=== PATIENT | female | born 2000 | race African-American/Black ===

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

== ENCOUNTER 2019-02-22 13:51 | Outpatient (CLI) | payer MEDICAID ==
[~2019-02-22] VITALS: Ht 175.3 cm; Wt 100.0 kg
[~2019-02-22 13:51] MED LIST changes: +ZOFRAN 4MG T4 MG/TAB PO; +ZOLOFT 50MG50 MG PO
--- NOTE | 2019-02-22 14:00 | NUR ---
Pt arrives on unit ambulatory with mother. States increased pressure that began this morning and increased throughout the day. Pt reports "slime" discharge feeling. Denies recent intercourse and bloody show. Report good movement. Changed into clean gown. EFM and toco applied. VSS. Amniotest negative. SVE per this RN /-2 with yellow/scant discharge. Reactive FHR strip. Admission assessment completed. Pt updated on POC. Safety reviewed. Bed locked in low position. Call light within reach. No questions or concerns at this time.
[2019-02-22 15:00] VITALS: BP 116/59; PULSE 111; TEMP 98.7
--- NOTE | 2019-02-22 15:06 | NUR ---
SVE per this RN unchanged. Pt taken off monitors. Discharge instructions given. No questions or concerns at this time.
== END 2019-02-22 15:00 | disposition home or self-care (01) ==
LOC: LDRO 13:51 → LDR 14:21 → LDRO 15:00
DX: Z34.93 Encounter for supervision of normal pregnancy, unspecified, third trimester (principal); Z3A.34 34 weeks gestation of pregnancy
CPT/HCPCS: OP

== ENCOUNTER 2019-02-22 20:28 | Outpatient (CLI) | payer MEDICAID ==
[~2019-02-22] VITALS: Ht 175.3 cm; Wt 100.0 kg
[2019-02-22 20:45] VITALS: BP 120/63; PULSE 96; TEMP 98.5
[2019-02-22 21:15] VITALS: BP 117/67; PULSE 100
[2019-02-22 21:45] VITALS: BP 110/58; PULSE 98
--- NOTE | 2019-02-22 22:39 | NUR ---
2200 PT DONE WITH RT TREATMENT AND FEELING BETTER. SVE DONE WITH NO CHANGE NOTED. EFM REMOVED AND PT DRESSING. REVIEWED DISCHARGE INSTRUCTIONS WITH PT AND HER MOTHER.
== END 2019-02-22 22:25 | disposition home or self-care (01) ==
LOC: LDRO 20:28
DX: O62.9 Abnormality of forces of labor, unspecified (principal); Z3A.34 34 weeks gestation of pregnancy

== ENCOUNTER 2019-02-25 19:40 | Outpatient (CLI) | payer MEDICAID ==
[~2019-02-25] VITALS: Ht 172.7 cm; Wt 100.9 kg
--- NOTE | 2019-02-25 19:45 | NUR ---
G1 at 35 weeks and 1 day presents to hospital with complaint of contractions every 3-4 minutes. Pt states she also has a headached. Pt reports last taking Tylenol yesterday. Reports good movement, denies LOF or vaginal bleeding. Pt denies swelling, RUQ, or blurry vision. Pt oriented to room, call light within reach, bed in low and locked position. US and toco explained and applied. Vital signs obtained. Admission assessment started. SVE /-3, membranes intact.
[2019-02-25 20:00] VITALS: BP 117/58; PULSE 117; TEMP 98.4
--- NOTE | 2019-02-25 21:15 | NUR ---
SVE unchanged from previous exam. Pt reports feeling better just uncomfortable. Educated patient on normal discomforts of . Dr. Carrillo updated, see physician notification.
--- NOTE | 2019-02-25 21:25 | NUR ---
Discharge instructions reviewed with patient, pt verbalized understanding. Pt seen ambulating off unit with family.
== END 2019-02-25 21:25 | disposition home or self-care (01) ==
LOC: LDRO 19:40 → LDR 19:45 → LDRO 21:25
DX: O62.9 Abnormality of forces of labor, unspecified (principal); Z3A.35 35 weeks gestation of pregnancy
CPT/HCPCS: OP

== ENCOUNTER 2019-03-01 00:08 | Inpatient (IN) | payer OTHER, MEDICAID ==
[2019-03-01] VITALS (62 sets, daily range): BP systolic 93–141; BP diastolic 50–98; PULSE 73–107; TEMP 97.5–98.5
[~2019-03-01] VITALS: Ht 172.7 cm; Wt 100.9 kg
--- NOTE | 2019-03-01 00:20 | NUR ---
G1 at 35 weeks and 5 days arrives to unit with complaint of spontaneous rupture of membranes. Pt states she felt a big gush of fluid around 2345 that soaked her bed. Pt states the fluid was clear and odorless. Pt reports feeling occasional mild contractions, denies vaginal bleeding and reports good movement. Pt oriented to room, call light within reach, bed in low and locked position. US and toco explained and applied. Plan of care reviewed with spouse and family. Amniotest positive swabbing vagina and perineum. SVE /-3, no fluid return on exam.
--- NOTE | 2019-03-01 00:45 | NUR ---
Amnisure completed and sent down to lab for results.
--- NOTE | 2019-03-01 01:05 | NUR ---
Pt called out saying she was leaking. Moderate amount of clear fluid noted on chux pad beneath patient. Amniotest to chux pad positive.
--- NOTE | 2019-03-01 02:00 | NUR ---
18G IV started in right hand after 1 attempt. Admission labs obtained off IV start. Lactated Ringers infusing to gravity.
--- NOTE | 2019-03-01 02:20 | NUR ---
Pen G started at this time. Consents reviewed and signed with patient and family. All questions answered.
[2019-03-01 02:28] LABS: HEMATOCRIT 37.6 % (35.0-45.0); HEMOGLOBIN 11.8 g/dl (12.0-15.0); MEAN CELL VOLUME 86 fl (80.0-95.0); MEAN CORPUSCULAR HEMOGLOBIN 27 pg (26.0-32.0); MEAN CORPUSCULAR HGB CONC 31 g/dl (33.0-37.0); MEAN PLATELET VOLUME 11.4 fl (7.4-10.4); PLATELET COUNT 217 K/mm3 (130-400); RED BLOOD COUNT 4.37 M/mm3 (4.10-5.30); REDCELL DISTRIBUTION WIDTH-CV 17.2 % (11.5-14.5)
--- NOTE | 2019-03-01 02:30 | NUR ---
Pt up to bathroom to void. Peritowel saturated, amniotest to towel positive.
[2019-03-01 03:47] LABS: ANISOCYTOSIS 1+; BAND 8 % (0-10); LYMPHOCYTE 21 % (20.0-51.0); NEUTROPHILS 65 % (42.0-75.2); PLATELET ESTIMATE NORMAL (NORMAL)
--- NOTE | 2019-03-01 04:00 | NUR ---
SVE /-3, amniotest swab to exam glove positive. Discussed plan of care with patient. Will start augmentation with pitocin.
--- NOTE | 2019-03-01 06:22 | NUR ---
0622-Recieved bedside shift report from EBONY Marin. Patient resting with family at bedside. Pen G dose # 2 due, notified pharmacy med unavailable in [facility]. 0645-SVE 3, Amnitest Positive. 0654-Dr. Casey updated on patient. See physician notification. 0712-Patient up to bathroom, returns to bed LL. Pen G dose # started see EMAR.
--- NOTE | 2019-03-01 08:25 | NUR ---
0872-Dr. Casey on unit. Reviews FHR monitor. In to see patient disucssed plan of care. SVE by , MD palpates fundus, toco off patient and back in place. 09-Dr. Casey on unit, reviews strip. Orders to conintue with pticoin per protocol.
--- NOTE | 2019-03-01 10:07 | NUR ---
[id number] DIFFICULTY TRACING EFM DUE TO PATIENT UP TO BATHROOM. REPORTS SMALL STOOL. DENIES CONTRACTION PAIN BUT STATES "I DO FEEL PRESSURE." 1034-SVE /-2. REPOSITIONED BACK WL.
--- NOTE | 2019-03-01 10:50 | NUR ---
1050-CONTRACTIONS EVERY 1-2 MIN OVER 20 MIN PERIOD. PITOCIN TURNED BACK TO 16MU/MIN. 1055-PATIENT UP TO BB. DIFFICULTY TRACING EFM DUE TO MATERNAL POSITIONING. RN FREQUENTLY READJUSTING MONITORS. 1110-PATIENT BACK TO BED WL. 1123-PEN G DOSE #3 GIVEN SEE EMAR.
--- NOTE | 2019-03-01 12:15 | NUR ---
1215-Dr. Casey called unit for update. Updated on SVE at 1030 , reviewed strip.Orders to check at 1230 and update. 1230-SVE , bloody show. buldging bag of fluid palpated. Update MD. Patient tearful with check. Reviewed pain managment options. 1240-Patient requests epidural.IVF bolus started
--- NOTE | 2019-03-01 12:58 | NUR ---
1258-Sonny to room. Patient sitting up on bedside for epidural placment. 1310-Sonny attempts catheter placement, new catheter obtained see anesthesia records. 1315-Epidural placed by MARK Dennis. see anesthesia records. 1320-Patient to bed WL, Dr. Caesy in patient room. 1323-SVE by . Forebag ruptured, clear fluid noted with bloody show. Geovanna care provided. Repositioned back WL and updated on plan of care and safety.
--- NOTE | 2019-03-01 14:10 | NUR ---
1410-SANCHEZ TO DD,CLEAR YELLOW URINE RETURN. TASHA CARE PROVIDED. PATIENT WL WITH PEANUT. 1420-DR. DON ON UNIT. IN TO SEE PATIENT. IUPC PLACED BY . PATIENT BACK WL WITH PEANUT.
--- NOTE | 2019-03-01 15:40 | NUR ---
1540-Maternal BP 97/53 subtle late decels in FHR with spontaneous return to baseline, IVF bolus sarted 1600-subtle late and intermittent variables in FHR with spontaneous return to baseline. Maternal BP 104/53. 1615-10mg Ephedrine given,see EMAR 1620-maternal BP 129/72 FHR 130bpm with +accels and moderate variability. Intermitten variables continue. 1630-Dr. Casey updated 1653-FSE placed, recurrent variable decels 1702-Dr. Casey updated, see phyisican notification.
--- NOTE | 2019-03-01 17:10 | NUR ---
1710-MD on unit, SVE by MD 8-/0, Difficulty tracing FHR with FSE, replaced EFM. Patient RL with oxygen via oxymask at 10l/min IVF bolus. Pit off. MD at bedside. 1722-FSE changed by MD, back to internal monitor. 1730-SVE by MD 0, FSE off EFM in place. continued difficulty tracing FHR RN holding monitors in place. Audible FHR 145bpm. MD reviews need to place vacuum for assistance with delviery patient agrees. 1737-Vacuum placed inside vagina RN palpates for contraction. 1739-Pressure applied to vacuum by MD. Patient begins pushing with contraction. Mediolateral episiotomy by MD 1740-Vacuum assisted delivery of head Vacuum off, Patient pushes and immediately delivers body. Viable male infant to mothers abdomen. Delayed cord clamping by MD. Care of assumed by EBONY Luna apgars 8/9/9. Cord gasses obtained and sent to lab per MD order 1748-Spontaneous delivery of intanct placenta by Dr. Casey, EBL 200ml. Fundal massage firm. Episotomy repaired by MD, pericare provided. Updated on plan of care and safety.
[2019-03-02 03:30] VITALS: BP 112/72; PULSE 88; TEMP 98.2
[2019-03-02 06:39] VITALS: BP 112/56; PULSE 85; TEMP 97.6
[2019-03-02 11:21] VITALS: BP 115/71; PULSE 94; TEMP 97.6
--- NOTE | 2019-03-02 13:36 | NUR ---
PATIENT SLEEPING. REPORT RECEIVED FROM OFF GOING RN YANG Garcia. CARE TAKEN OVER BY THIS RN.
[2019-03-02 16:00] VITALS: BP 113/55; PULSE 89; TEMP 97.8
[2019-03-02 21:30] VITALS: BP 127/53; PULSE 78; TEMP 98.2
[2019-03-03 06:50] VITALS: BP 113/64; PULSE 83; TEMP 98.3
[2019-03-03] MEDS ORDERED: PERCOCET 325 MG1 TA2 PO (10:31)
[2019-03-03] MEDS ORDERED: IBU600 MG PO (10:31)
== END 2019-03-03 11:15 | disposition home or self-care (01) | DRG 807 ==
LOC: LDRO 00:08 → LDR 00:20 → OB 00:20
PROVIDERS: Obstetrics & Gynecology; ADMIT Obstetrics & Gynecology
PROC: 10D07Z6 Extraction of Products of Conception, Vacuum, Via Natural or Artificial Opening (ICD-10-PCS; principal; 2019-03-01)
PROC: 0W8NXZZ Division of Female Perineum, External Approach (ICD-10-PCS; 2019-03-01)
DX: O42.913 Preterm premature rupture of membranes, unspecified as to length of time between rupture and onset of labor, third trimester (principal); Z37.0 Single live birth; Z3A.35 35 weeks gestation of pregnancy; O99.344 Other mental disorders complicating childbirth; F32.9 Major depressive disorder, single episode, unspecified; O76 Abnormality in fetal heart rate and rhythm complicating labor and delivery
CPT/HCPCS: J2540; J2590; J2795; J7120

== ENCOUNTER 2019-04-02 02:09 | Emergency (ER) | payer OTHER ==
[~2019-04-02] VITALS: Ht 175.3 cm; Wt 84.1 kg
[~2019-04-02 02:09] MED LIST changes: +IBU600 MG PO; +PERCOCET 325 MG1 TA2 PO
[2019-04-02 02:24] VITALS: TEMP 97.8
[2019-04-02] MEDS ORDERED: [UNRECOGNIZED DRUG - REMARK] (02:37)
[2019-04-02 02:58] VITALS: BP 121/49; PULSE 84
[2019-04-02] MEDS ORDERED: PROAIR HFA0.09 MG/AC IH (03:06)
== END 2019-04-02 03:04 | disposition home or self-care (01) ==
LOC: COL.ER 02:09
DX: J06.9 Acute upper respiratory infection, unspecified (principal); J45.909 Unspecified asthma, uncomplicated

== ENCOUNTER 2021-11-09 10:52 | Emergency (ER) | payer MEDICAID ==
[~2021-11-09] VITALS: Ht 175.3 cm; Wt 96.2 kg
[~2021-11-09 10:52] MED LIST changes: +[UNRECOGNIZED DRUG - REMARK]
[2021-11-09 11:27] VITALS: TEMP 98.1
[2021-11-09] MEDS ORDERED: VALTREX1 GM PO (11:40)
[2021-11-09 11:51] VITALS: BP 158/87; PULSE 83
== END 2021-11-09 11:51 | disposition home or self-care (01) ==
LOC: COL.ER 10:52
DX: K13.70 Unspecified lesions of oral mucosa (principal)

== ENCOUNTER 2021-12-14 18:38 | Emergency (ER) | payer MEDICAID ==
[~2021-12-14] VITALS: Ht 172.7 cm; Wt 86.4 kg
[~2021-12-14 18:38] MED LIST changes: +VALTREX1 GM PO
[2021-12-14 18:59] VITALS: BP 110/77; TEMP 99.5
[2021-12-14 19:40] LABS: STREP SCREEN NEGATIVE
[2021-12-14 20:47] VITALS: PULSE 92
== END 2021-12-14 20:47 | disposition home or self-care (01) ==
LOC: COL.ER 18:38
PROVIDERS: Nurse Practitioner Primary Care
DX: J06.9 Acute upper respiratory infection, unspecified (principal); Z20.822 Contact with and (suspected) exposure to COVID-19

== ENCOUNTER 2022-12-01 12:59 | Outpatient (RCR) | payer OTHER, MEDICAID ==
[~2022-12-01 12:59] MED LIST changes: +BACTRIM DS 8001 TAB PO
== END 2022-12-03 | disposition home or self-care (01) ==
LOC: WSPT
DX: M54.50 Low back pain, unspecified (principal)